=== PATIENT | male | born 1945 | race Caucasian/White ===

== ENCOUNTER → 2017-03-04 10:05 | Outpatient (CLI) | payer MEDICARE, OTHER ==
[2012-04-29 14:31] VITALS: BMI 25.3
== END | disposition home or self-care (01) ==
LOC: D.CT 10:05
DX: R11.2 Nausea with vomiting, unspecified (principal)

== ENCOUNTER → 2017-06-03 08:44 | Outpatient (CLI) | payer MEDICARE, OTHER ==
[2012-04-29 14:31] VITALS: BMI 25.3
== END | disposition home or self-care (01) ==
LOC: D.RAD 08:44
DX: R10.9 Unspecified abdominal pain (principal); R11.2 Nausea with vomiting, unspecified

== ENCOUNTER → 2017-06-11 09:12 | Outpatient (CLI) | payer MEDICARE, OTHER ==
[2012-04-29 14:31] VITALS: BMI 25.3
== END | disposition home or self-care (01) ==
LOC: D.NM 09:12
DX: R10.9 Unspecified abdominal pain (principal); R11.2 Nausea with vomiting, unspecified

== ENCOUNTER 2017-06-25 05:06 | Day surgery (SDC) | payer MEDICARE, OTHER ==
[~2017-06-25] VITALS: Ht 170.2 cm; Wt 77.1 kg
--- NOTE | ~2017-06-25 | OP ---
PATIENT NAME: VANDANA ALBARADO MEDICAL RECORD: [id number] :47 LOCATION:D.OPS ADMISSION DATE: SURGEON: KHNAH GUTIERREZ MD DATE OF OPERATION: 06/25/2017 PREOPERATIVE DIAGNOSES: 1. Biliary dyskinesia. 2. Tobacco dependence syndrome. 3. History of rectal cancer. POSTOPERATIVE DIAGNOSES: 1. Biliary dyskinesia. 2. Tobacco dependence syndrome. 3. History of rectal cancer. PROCEDURE: Laparoscopic cholecystectomy. SURGEON: Khanh Gutierrez MD REPORT OF PROCEDURE: The patient's abdomen was prepped and draped in sterile fashion. A cutdown was made on the superior aspect of the umbilicus, 0 Vicryls were placed in the fascia bilaterally, and the fascia was incised with 15-blade. I bluntly entered the peritoneal cavity and placed a 12-mm Weston port. Under direct visualization, a 5 mm trocar was placed in the epigastrium and 2 more 5-mm trocars were placed in the right subcostal region. The gallbladder was grasped and elevated. The cystic artery and cystic duct were dissected free and these were clipped proximally and distally and ligated in standard fashion. As we started taking the gallbladder off the liver bed, there was noted to be another branch of the artery, which was posterior to the gallbladder. This was clipped proximally and distally and ligated. The gallbladder was taken off the liver bed and placed into an Endo Catch bag. Any bleeding from the liver bed was then treated with electrocautery. At this point, the ports and insufflation were then removed and the gallbladder was taken out through the umbilicus. We then inspected the pelvis to look for any adhesions as the patient had a history of a hand-assisted laparoscopic low anterior resection. There were no signs of any adhesions present in the pelvis. I was able to see the small bowel was free and mobile. The tissues all seem to be intact with no signs of any masses or lesions. At this point, the ports and insufflation were then removed. The periumbilical fascia was closed with interrupted 0 Vicryls times 3. The wounds were irrigated out with normal saline and infused with 10 mL of 0.25% Marcaine with epinephrine. The skin incisions were all closed with subcutaneous 5-0 Monocryl and dressed appropriately. COMPLICATIONS: None. CONDITION: Stable. ANESTHESIA: General endotracheal and local. BLOOD LOSS: Minimal. TRANSINT:[id number] Voice Confirmation ID: [id number] DOCUMENT ID: [id number] OPERATIVE REPORT [id number] VANDANA ALBARADO CHRISTIAN MD at 1044 CC: CÉSAR MEZA MD [id number] DICTATION DATE: 06/25/17 0845 FERMENTING CELLARS RECEIVER: 06/25/17 1031 REG [place] [id number] [place] [id number]
[2017-06-25 05:33] LABS: BASOPHILS 0.2 % (0-2); EOSINOPHILS 2.8 % (0-7); HEMOGLOBIN 14.1 g/dL (13.5-17.5); IMMATURE GRANULOCYTES 0.3 % (0-5); LYMPHOCYTES 16.8 % (15-50); MCH 32.3 pg (26.0-34.0); MCHC 34.4 g/dL (31.0-37.0); MEAN PLATELET VOLUME 10.7 fL (7.4-10.4); MONOCYTES 8.5 % (2-11); NEUTROPHILS 71.4 % (40-80); PLATELET COUNT 140 10x3/uL (130-400); RBC 4.36 10x6/uL (4.20-6.10); RDW 13.3 % (11.5-14.5); WBC 6.3 10x3/uL (4.8-10.8)
[2017-06-25 05:49] LABS: APTT 32.8 SECONDS (22.8-39.4); INR 0.92 (0.85-1.17)
[2017-06-25 05:59] LABS: CALC OSMOLALITY 279 mosm/kg (275-300); CALCIUM 8.7 mg/dL (8.5-10.1); CARBON DIOXIDE 26.8 mmol/L (21.0-32.0); CHLORIDE - SERUM 104 mmol/L (98-107); GLUCOSE 88 mg/dL (74-106); POTASSIUM - SERUM 4.1 mmol/L (3.5-5.1); SODIUM 140 mmol/L (136-145); UREA NITROGEN 19 mg/dL (7-18); eGFR NON AFRICAN AMERICAN 78 mL/min (90-120)
[2017-06-25 06:14] VITALS: BP 140/68; Ht 170.2 cm; Wt 77.1 kg
[2017-06-25] MEDS ORDERED: HYDROCODONE-APA1 TAB PO (08:41)
== END 2017-06-25 10:30 | disposition home or self-care (01) ==
LOC: D.OPS 05:06
PROVIDERS: Anesthesiology; Surgery
DX: K82.8 Other specified diseases of gallbladder (principal); F17.200 Nicotine dependence, unspecified, uncomplicated; Z85.048 Personal history of other malignant neoplasm of rectum, rectosigmoid junction, and anus; J44.9 Chronic obstructive pulmonary disease, unspecified; Z01.812 Encounter for preprocedural laboratory examination

== ENCOUNTER → 2017-09-09 10:04 | Outpatient (CLI) | payer MEDICARE, OTHER ==
[2017-06-25 06:14] VITALS: BMI 26.7
[~2017-09-09 10:04] MED LIST: HYDROCODONE-APA1 TAB PO
[2017-09-09 11:05] LABS: BASOPHILS 0.1 % (0-2); EOSINOPHILS 0.7 % (0-7); HEMATOCRIT 43.4 % (42.0-54.0); HEMOGLOBIN 15.1 g/dL (13.5-17.5); IMMATURE GRANULOCYTES 0.2 % (0-5); LYMPHOCYTES 7.9 % (15-50); MCH 32.3 pg (26.0-34.0); MCHC 34.8 g/dL (31.0-37.0); MCV 92.9 fL (80.0-100.0); MEAN PLATELET VOLUME 11.3 fL (7.4-10.4); MONOCYTES 6.7 % (2-11); NEUTROPHILS 84.4 % (40-80); PLATELET COUNT 133 10x3/uL (130-400); RBC 4.67 10x6/uL (4.20-6.10); RDW 13.4 % (11.5-14.5); WBC 9.2 10x3/uL (4.8-10.8)
[2017-09-09 11:13] LABS: ALBUMIN 3.7 g/dL (3.4-5.0); ALKALINE PHOSPHATASE 96 U/L (46-116); ALT (SGPT) 23 U/L (10-68); AMYLASE - SERUM 54 U/L (25-115); CALC OSMOLALITY 278 mosm/kg (275-300); CALCIUM 9.6 mg/dL (8.5-10.1); CARBON DIOXIDE 28.2 mmol/L (21.0-32.0); CHLORIDE - SERUM 105 mmol/L (98-107); GLUCOSE 108 mg/dL (74-106); LIPASE 102 U/L (73-393); POTASSIUM - SERUM 4.7 mmol/L (3.5-5.1); PROTEIN - SERUM 7.4 g/dL (6.4-8.2); SODIUM 139 mmol/L (136-145); UREA NITROGEN 13 mg/dL (7-18); eGFR NON AFRICAN AMERICAN 78 mL/min (90-120)
== END | disposition home or self-care (01) ==
LOC: D.CT 10:04
PROVIDERS: Surgery
DX: R10.13 Epigastric pain (principal)

== ENCOUNTER → 2017-09-24 07:17 | Outpatient (CLI) | payer MEDICARE, OTHER ==
[2017-06-25 06:14] VITALS: BMI 26.7
== END | disposition home or self-care (01) ==
LOC: D.CT 07:17
DX: R10.9 Unspecified abdominal pain (principal)

== ENCOUNTER 2020-07-13 16:36 | Inpatient (IN) | payer MEDICARE ==
[~2020-07-13] VITALS: Ht 170.2 cm; Wt 74.8 kg
[2020-07-13 17:05] LABS: BASOPHILS 0.1 % (0-2); EOSINOPHILS 0.1 % (0-7); HEMOGLOBIN 15.6 g/dL (13.5-17.5); IMMATURE GRANULOCYTES 0.1 % (0-5); LYMPHOCYTE ABS# 0.57 10x3/uL (1.32-3.57); LYMPHOCYTES 6.7 % (15-50); MCH 32.2 pg (26.0-34.0); MCHC 34.7 g/dL (31.0-37.0); MEAN PLATELET VOLUME 10.6 fL (7.4-10.4); MONOCYTES 10.6 % (2-11); NEUTROPHIL ABS# 7.01 10x3/uL (1.78-5.38); NEUTROPHILS 82.4 % (40-80); RBC 4.84 10x6/uL (4.20-6.10); RDW 13.7 % (11.5-14.5); WBC 8.5 10x3/uL (4.8-10.8)
[2020-07-13 17:16] LABS: CALC OSMOLALITY 281 mosm/kg (275-300); CALCIUM 9.4 mg/dL (8.5-10.1); CARBON DIOXIDE 30.3 mmol/L (21.0-32.0); CHLORIDE - SERUM 102 mmol/L (98-107); GLUCOSE 116 mg/dL (74-106); PLATELET COUNT 161 10x3/uL (130-400); SODIUM 140 mmol/L (136-145); UREA NITROGEN 18 mg/dL (7-18); eGFR NON AFRICAN AMERICAN 78 mL/min (90-120)
[2020-07-13 17:24] LABS: ALBUMIN 3.7 g/dL (3.4-5.0); ALKALINE PHOSPHATASE 82 U/L (30-120); ALT (SGPT) 20 U/L (10-68); AMYLASE - SERUM 61 U/L (25-115); BILIRUBIN - TOTAL 0.67 mg/dL (0.2-1.3); LIPASE 95 U/L (73-393); PROTEIN - SERUM 7.3 g/dL (6.4-8.2)
[2020-07-13 17:32] LABS: TROPONIN-I < 0.017 ng/mL (0.000-0.060)
[2020-07-13 17:37] LABS: BILIRUBIN NEGATIVE (NEGATIVE); KETONE MODERATE mg/dL (NEGATIVE); NITRITE NEGATIVE (NEGATIVE); UROBILINOGEN NORMAL mg/dL (< 2)
[2020-07-13 19:29] VITALS: BP 118/84
--- NOTE | 2020-07-13 19:29 | NUR ---
PT REPORT CALLED TO KENYETTA FORBES, NGT HAD BEEN DROPPED, WAITING ON X-RAY PALCEMENT TO HOOK TO SUCTION AT THIS TIME, RN IS AWARE
[2020-07-13 20:16] VITALS: BP 163/87
--- NOTE | 2020-07-13 21:02 | NUR ---
PATIENT STATES HE CURRENTLY TAKES NO HOME MEDICATIONS.
[2020-07-13 23:02] VITALS: BP 163/87
[2020-07-13 23:17] LABS: APTT 31.1 SECONDS (22.8-39.4); INR 1.06 (0.85-1.17); PROTIME 12.7 SECONDS (11.6-15.0)
[2020-07-13 23:43] LABS: MAGNESIUM - SERUM 2.1 mg/dL (1.8-2.4)
[2020-07-14 00:38] VITALS: BP 165/88
--- NOTE | 2020-07-14 01:40 | NUR ---
NGT SET TO LOW INTERMITTENT SUCTION PER PROTOCOL. GREEN GASTIRC CONTENT DRAINING. REPORTS RELIEF WITH PAIN MEDICATION. PATIENT IS AWARE OF NPO STATUS. DENIES NEEDS AT THIS TIME, RESTING COMFORTABLE.
[2020-07-14 04:57] VITALS: BP 162/72
[2020-07-14 06:27] LABS: BASOPHILS 0.2 % (0-2); EOSINOPHILS 0.2 % (0-7); HEMATOCRIT 42.7 % (42.0-54.0); HEMOGLOBIN 14.6 g/dL (13.5-17.5); IMMATURE GRANULOCYTES 0.2 % (0-5); LYMPHOCYTE ABS# 0.76 10x3/uL (1.32-3.57); LYMPHOCYTES 13.6 % (15-50); MCH 31.7 pg (26.0-34.0); MCHC 34.2 g/dL (31.0-37.0); MCV 92.8 fL (80.0-100.0); MEAN PLATELET VOLUME 10.9 fL (7.4-10.4); MONOCYTES 14.4 % (2-11); NEUTROPHIL ABS# 3.98 10x3/uL (1.78-5.38); NEUTROPHILS 71.4 % (40-80); PLATELET COUNT 141 10x3/uL (130-400); RDW 13.7 % (11.5-14.5)
[2020-07-14 06:29] LABS: WBC 5.6 10x3/uL (4.8-10.8)
[2020-07-14 07:09] LABS: ALBUMIN 3.3 g/dL (3.4-5.0); ALKALINE PHOSPHATASE 73 U/L (30-120); ALT (SGPT) 17 U/L (10-68); BILIRUBIN - TOTAL 0.58 mg/dL (0.2-1.3); CALC OSMOLALITY 280 mosm/kg (275-300); CALCIUM 8.8 mg/dL (8.5-10.1); CARBON DIOXIDE 25.8 mmol/L (21.0-32.0); CHLORIDE - SERUM 104 mmol/L (98-107); CREATININE - SERUM 0.8 mg/dL (0.6-1.3); GLUCOSE 105 mg/dL (74-106); POTASSIUM - SERUM 3.8 mmol/L (3.5-5.1); PROTEIN - SERUM 6.3 g/dL (6.4-8.2); SODIUM 140 mmol/L (136-145); UREA NITROGEN 18 mg/dL (7-18); eGFR NON AFRICAN AMERICAN > 90 mL/min (90-120)
[2020-07-14 07:12] VITALS: BP 146/66
[2020-07-14 07:24] VITALS: Ht 170.2 cm; Wt 74.8 kg
[2020-07-14 11:55] VITALS: BP 137/60
[2020-07-14 15:37] VITALS: BP 158/64
[2020-07-14 20:02] VITALS: BP 46/63
--- NOTE | 2020-07-14 23:00 | NUR ---
NGT SET TO LIS. CONTINUES IV FLUIDS TO PIV TO RIGHT AC. REPORTS HAVING BM TODAY. NO C/O PAIN. DENIES OTHER NEEDS AT THIS TIME.
[2020-07-15 00:41] VITALS: BP 115/73
[2020-07-15 04:52] VITALS: BP 144/68
--- NOTE | 2020-07-15 06:17 | NUR ---
PATIENT HAD BM THIS MORNING. HAS BEEN PASSING GAS ALL NIGHT.
[2020-07-15 07:28] LABS: BASOPHILS 0.1 % (0-2); EOSINOPHILS 0.5 % (0-7); HEMOGLOBIN 13.9 g/dL (13.5-17.5); IMMATURE GRANULOCYTES 0.2 % (0-5); LYMPHOCYTE ABS# 0.91 10x3/uL (1.32-3.57); LYMPHOCYTES 10.7 % (15-50); MCHC 34.8 g/dL (31.0-37.0); MEAN PLATELET VOLUME 10.9 fL (7.4-10.4); MONOCYTES 8.1 % (2-11); NEUTROPHIL ABS# 6.85 10x3/uL (1.78-5.38); NEUTROPHILS 80.4 % (40-80); PLATELET COUNT 143 10x3/uL (130-400); RBC 4.35 10x6/uL (4.20-6.10); RDW 13.4 % (11.5-14.5)
[2020-07-15 07:30] LABS: WBC 8.5 10x3/uL (4.8-10.8)
[2020-07-15 07:47] LABS: ALBUMIN 3.2 g/dL (3.4-5.0); ALKALINE PHOSPHATASE 77 U/L (30-120); ALT (SGPT) 16 U/L (10-68); BILIRUBIN - TOTAL 0.68 mg/dL (0.2-1.3); CALC OSMOLALITY 278 mosm/kg (275-300); CALCIUM 8.1 mg/dL (8.5-10.1); CARBON DIOXIDE 25.8 mmol/L (21.0-32.0); CHLORIDE - SERUM 106 mmol/L (98-107); CREATININE - SERUM 0.8 mg/dL (0.6-1.3); GLUCOSE 88 mg/dL (74-106); POTASSIUM - SERUM 3.5 mmol/L (3.5-5.1); PROTEIN - SERUM 5.9 g/dL (6.4-8.2); SODIUM 140 mmol/L (136-145); UREA NITROGEN 16 mg/dL (7-18); eGFR NON AFRICAN AMERICAN > 90 mL/min (90-120)
--- NOTE | 2020-07-15 09:00 | NUR ---
IV RESITED TO LEFT FOREARM X2 STICKS ASEPTIC TECH,22 G.IV DCD FROM RIGHT AC WITH CATH TIP INTACT
[2020-07-15 09:33] VITALS: BP 136/69
[2020-07-15 12:23] VITALS: BP 133/66
--- NOTE | 2020-07-15 15:24 | NUR ---
IV DCD WITH CATH TIP INTACT. DISCHARGE INSTRUCTIONS,STATES UNDERSTANDING. PT GETTING DRESSED FOR TRANSPORT HOME.
--- NOTE | 2020-07-15 15:29 | NUR ---
LEFT UNIT VIA WHEELCHAIR FOR TRANSPORT HOME.
--- NOTE | 2020-07-15 16:47 | MORECARE ---
CASE MANAGEMENT DISCHARGE SUMMARY PATIENT: VANDANA ALBARADO UNIT: [id number] ADM DATE: 07/13/20 AGE: 74 : 46 SEX: M ROOM/BED: D.[facility] AUTHOR: AMADO TOUSSAINT PHYSICIAN: REFERRING PHYSICIAN: HUGO MELGAR MD DATE OF SERVICE: 07/15/20 Discharge Plan Patient Name: VANDANA ALBARADO Facility: [facility]:[place] : 1945 Planned Disposition: Home Anticipated Discharge Date: 07/15/20 Discharge Date: 07/15/2020 Expected LOS: 2 Initial Reviewer: [id number] Initial Review Date: 07/13/2020 Generated: 07/15/20 5:46 pm DCPIA - Discharge Planning Initial Assessment Updated by [email or web address]: Regino Shoemaker on 07/15/20 4:44 pm * Is the patient Alert and Oriented? Yes * How many steps to enter\exit or inside your home? 3/0 * PCP HÉCOTR * Pharmacy [facility] in [facility] * Preadmission Environment Home with Family * ADLs Independent * Equipment None * Other Equipment n/a * List name and contact numbers for known caregivers / representatives who currently or will assist patient after discharge: SAVAGE ALBARADO (spouse) [phone] * Verbal permission to speak to the caregivers and representatives has been obtained from the patient. Yes * Community resources currently utilized None * Please name any agencies selected above. n/a * Additional services required to return to the preadmission environment? No * Can the patient safely return to the preadmission environment? Yes * Has this patient been hospitalized within the prior 30 days at any hospital? No Coverage Notice Reviewer: [id number] - Regino Shoemaker Notice Issued Date-Time: 07/15/2020 15:20 Notice Type: IM Discharge Notice Notice Delivered To: Patient Relationship to Patient: Self Accounts Payable Associate Name: Delivery Method: HAND - Hand Delivered Cortney Days: Prior Verbal Notification: Recipient Understood Notice: Yes Recipient Signature: Yes Med Rec Note Co-signed by Attending: Coverage Notice Comment: DC IMM delivered, explained, signed by the patient, and placed in chart Patient Name: VANDANA ALBARADO Page [phone] at 1647 All edits/amendments must be made on the electronic document DICTATION DATE: 07/15/201646 SUPERVISOR PARK WORKERS: JACQUELINE 07/15/201646 RPT#: [id number] DC DATE:07/15/20 STATUS: DIS IN [facility] [address] [place] [address] END OF REPORT
--- NOTE | 2020-07-15 16:55 | MORECARE ---
CASE MANAGEMENT DISCHARGE SUMMARY PATIENT: VANDANA ALBARADO UNIT: [id number] ADM DATE: 07/13/20 AGE: 74 : 47 SEX: M ROOM/BED: D.2231 AUTHOR: NORBERT,DOC PHYSICIAN: REFERRING PHYSICIAN: HUGO MELGAR MD DATE OF SERVICE: 07/15/20 Discharge Plan Patient Name: VANDANA ALBARADO Facility: [facility]:[place] : 1945 Planned Disposition: Home Anticipated Discharge Date: 07/15/20 Discharge Date: 07/15/2020 Expected LOS: 2 Initial Reviewer: [email or web address] Initial Review Date: 07/13/2020 Generated: 07/15/20 5:54 pm Comments DCP- Discharge Planning Updated by [email or web address]: Regino Shoemaker on 07/15/20 2:[address] CM met with patient to complete DC plan and to evaluate needs. Patient lives at home independently with his spouse. At discharge, the patient plans to return home and feels this is a safe discharge. CM discussed availability of home health, rehab services, and medical equipment. Patient declined HHS, SNF, IPR, and DME. Patient voiced no other needs at this time and is satisfied with DC plan. Transportation provider at discharge will be with his spouse, Savage Albarado ([phone]). DC IMM delivered, explained, signed by the patient, and placed in chart. Signed form also left with the patient. CM will continue to follow and will assist as needed with dc plans/needs. DCPIA - Discharge Planning Initial Assessment Updated by [email or web address]: Regino Shoemaker on 07/15/20 4:44 pm * Is the patient Alert and Oriented? Yes * How many steps to enter\exit or inside your home? 3/0 * PCP HÉCTOR * Pharmacy [facility] in [facility] * Preadmission Environment Home with Family * ADLs Independent * Equipment None * Other Equipment n/a * List name and contact numbers for known caregivers / representatives who currently or will assist patient after discharge: SAVAGE ALBARADO (spouse) [phone] * Verbal permission to speak to the caregivers and representatives has been obtained from the patient. Yes * Community resources currently utilized None * Please name any agencies selected above. n/a * Additional services required to return to the preadmission environment? No * Can the patient safely return to the preadmission environment? Yes * Has this patient been hospitalized within the prior 30 days at any hospital? No Coverage Notice Reviewer: [email or web address] Jersey Shoemaker Notice Issued Date-Time: 07/15/2020 15:20 Notice Type: IM Discharge Notice Notice Delivered To: Patient Relationship to Patient: Self Director Utilization Management Name: Delivery Method: HAND - Hand Delivered Cortney Days: Prior Verbal Notification: Recipient Understood Notice: Yes Recipient Signature: Yes Med Rec Note Co-signed by Attending: Coverage Notice Comment: DC IMM delivered, explained, signed by the patient, and placed in chart Last DP export: 07/15/20 2:47 p Patient Name: VANDANA ALBARADO Page [phone] at 1655 All edits/amendments must be made on the electronic document DICTATION DATE: 07/15/201653 WASTE DISPOSAL LEAKAGE TESTER: JACQUELINE 07/15/201653 RPT#: [id number] DC DATE:07/15/20 STATUS: DIS IN [facility] [address] [place] [address] END OF REPORT
--- NOTE | 2020-07-16 08:30 | MORECARE ---
CASE MANAGEMENT DISCHARGE SUMMARY PATIENT: VANDANA ALBARADO UNIT: [id number] ADM DATE: 07/13/20 AGE: 74 : 47 SEX: M ROOM/BED: D.2231 AUTHOR: NORBERT,DOC PHYSICIAN: REFERRING PHYSICIAN: HUGO MELGAR MD DATE OF SERVICE: 07/16/20 Discharge Plan Patient Name: VANDANA ALBARADO Facility: [facility]:[place] : 1945 Planned Disposition: Home Anticipated Discharge Date: 07/15/20 Discharge Date: 07/15/2020 Expected LOS: 2 Initial Reviewer: [email or web address] Initial Review Date: 07/13/2020 Generated: 07/16/20 9:29 am Comments DCP- Discharge Planning Updated by [email or web address]: Regino Shoemaker on 07/15/20 2:[address] CM met with patient to complete DC plan and to evaluate needs. Patient lives at home independently with his spouse. At discharge, the patient plans to return home and feels this is a safe discharge. CM discussed availability of home health, rehab services, and medical equipment. Patient declined HHS, SNF, IPR, and DME. Patient voiced no other needs at this time and is satisfied with DC plan. Transportation provider at discharge will be with his spouse, Savage Albarado ([phone]). DC IMM delivered, explained, signed by the patient, and placed in chart. Signed form also left with the patient. CM will continue to follow and will assist as needed with dc plans/needs. DCPIA - Discharge Planning Initial Assessment Updated by [email or web address]: Regino Shoemaker on 07/15/20 4:44 pm * Is the patient Alert and Oriented? Yes * How many steps to enter\exit or inside your home? 3/0 * PCP HÉCTOR * Pharmacy [facility] in [facility] * Preadmission Environment Home with Family * ADLs Independent * Equipment None * Other Equipment n/a * List name and contact numbers for known caregivers / representatives who currently or will assist patient after discharge: SAVAGE ALBARADO (spouse) [phone] * Verbal permission to speak to the caregivers and representatives has been obtained from the patient. Yes * Community resources currently utilized None * Please name any agencies selected above. n/a * Additional services required to return to the preadmission environment? No * Can the patient safely return to the preadmission environment? Yes * Has this patient been hospitalized within the prior 30 days at any hospital? No Coverage Notice Reviewer: [id number] Jersey Shoemaker Notice Issued Date-Time: 07/15/2020 15:20 Notice Type: IM Discharge Notice Notice Delivered To: Patient Relationship to Patient: Self Dental Chair Assembler Name: Delivery Method: HAND - Hand Delivered Cortney Days: Prior Verbal Notification: Recipient Understood Notice: Yes Recipient Signature: Yes Med Rec Note Co-signed by Attending: Coverage Notice Comment: DC IMM delivered, explained, signed by the patient, and placed in chart Last DP export: 07/15/20 2:55 p Patient Name: VANDANA ALBARADO Page [phone] at 0830 All edits/amendments must be made on the electronic document DICTATION DATE: 07/16/20828 MANAGER OF REVENUE: JACQUELINE 07/16/20828 RPT#: [id number] DC DATE:07/15/20 STATUS: DIS IN [facility] [address] [place] [address] END OF REPORT
== END 2020-07-15 15:32 | disposition home or self-care (01) | DRG 390 ==
LOC: D.ER 16:36 → D.EDHOLD 18:37 → D.MS 18:46
PROVIDERS: Emergency Medicine; ADMIT Family Medicine Adult Medicine; ATTEND Family Medicine Adult Medicine
DX: K56.609 Unspecified intestinal obstruction, unspecified as to partial versus complete obstruction (principal); H91.93 Unspecified hearing loss, bilateral; I10 Essential (primary) hypertension; Z85.038 Personal history of other malignant neoplasm of large intestine

== ENCOUNTER 2020-09-11 17:38 | Inpatient (IN) | payer MEDICARE ==
[~2020-09-11] VITALS: Ht 170.2 cm; Wt 77.0 kg
[2020-09-11 18:10] LABS: BASOPHILS 0.1 % (0-2); EOSINOPHILS 0.1 % (0-7); HEMATOCRIT 43.9 % (42.0-54.0); HEMOGLOBIN 15.3 g/dL (13.5-17.5); IMMATURE GRANULOCYTES 0.2 % (0-5); LYMPHOCYTE ABS# 0.88 10x3/uL (1.32-3.57); LYMPHOCYTES 7.9 % (15-50); MCH 32.2 pg (26.0-34.0); MCHC 34.9 g/dL (31.0-37.0); MCV 92.4 fL (80.0-100.0); MEAN PLATELET VOLUME 11.1 fL (7.4-10.4); MONOCYTES 4.2 % (2-11); NEUTROPHIL ABS# 9.77 10x3/uL (1.78-5.38); NEUTROPHILS 87.5 % (40-80); PLATELET COUNT 161 10x3/uL (130-400); RBC 4.75 10x6/uL (4.20-6.10); RDW 13.6 % (11.5-14.5); WBC 11.2 10x3/uL (4.8-10.8)
[2020-09-11 18:33] LABS: BILIRUBIN NEGATIVE (NEGATIVE); KETONE NEGATIVE (NEGATIVE); NITRITE NEGATIVE (NEGATIVE); UROBILINOGEN NORMAL mg/dL (< 2)
[2020-09-11 18:35] LABS: CALC OSMOLALITY 281 mosm/kg (275-300); CARBON DIOXIDE 30.3 mmol/L (21.0-32.0); CHLORIDE - SERUM 101 mmol/L (98-107); CREATININE - SERUM 1.1 mg/dL (0.6-1.3); GLUCOSE 115 mg/dL (74-106); POTASSIUM - SERUM 4.3 mmol/L (3.5-5.1); SODIUM 138 mmol/L (136-145); UREA NITROGEN 26 mg/dL (7-18); eGFR NON AFRICAN AMERICAN 69 mL/min (90-120)
[2020-09-11 18:43] LABS: ALBUMIN 3.9 g/dL (3.4-5.0); ALKALINE PHOSPHATASE 82 U/L (30-120); ALT (SGPT) 22 U/L (10-68); AMYLASE - SERUM 53 U/L (25-115); BILIRUBIN - TOTAL 0.64 mg/dL (0.2-1.3); LIPASE 100 U/L (73-393); PROTEIN - SERUM 7.6 g/dL (6.4-8.2)
[2020-09-11 18:45] LABS: TROPONIN-I < 0.017 ng/mL (0.000-0.060)
[2020-09-11 19:03] VITALS: BP 159/74
[2020-09-11 20:00] VITALS: BP 137/73
[2020-09-11 20:40] VITALS: BP 146/72
[2020-09-11 21:00] VITALS: BP 146/75
--- NOTE | 2020-09-11 22:00 | NUR ---
PT ARRIVED TO FLOOR AOX4. ASSISTED PT TO CHANGE INTO GOWN. NGT TO LIS. IV RIGHT AC INFUSING NS @ 75. PT REQUESTED AND GIVEN MORPHINE FOR PAIN. DENIES NAUSEA AT THIS TIME. STATES HE HAS NOT HAD A BOWEL MOVEMENT SINCE YESTERDAY AND THIS IS WHAT IT FELT LIKE WHEN HE HAD A SBO LAST TIME. LEAVING BEDSIDE AT THIS TIME TO HOME. PT DENIES OTHER NEEDS. CL IN REACH
--- NOTE | 2020-09-11 22:29 | NUR ---
NGT TO L NARE TO LIS CLEAR GASTRIC CONTENTS
[2020-09-12] VITALS (7 sets, daily range): BP systolic 127–162; BP diastolic 63–79; Ht 170.2 cm; Wt 77.0 kg
--- NOTE | 2020-09-12 00:30 | NUR ---
PT CALLED ASKING FOR PAIN MEDICATION. STATES THAT MORPHINE DID NOT REALLY HELP. STILL ALMOST 2 HOURS FROM TIME PT CAN HAVE MORE MORPHINE. CALLED AND SPOKE WITH NEGRITO RAMIREZ APN. STATES TO CHANGE MORPHINE TO DILAUDID AND GIVE FIRST DOSE NOW. GAVE DILAUDID ORDERED. PT DENIES OTHER NEEDS. CL IN REACH
[2020-09-12 07:21] LABS: APTT 31.9 SECONDS (22.8-39.4); BASOPHILS 0.1 % (0-2); EOSINOPHILS 0.7 % (0-7); HEMATOCRIT 41.2 % (42.0-54.0); HEMOGLOBIN 13.9 g/dL (13.5-17.5); IMMATURE GRANULOCYTES 0.1 % (0-5); INR 1.05 (0.85-1.17); LYMPHOCYTE ABS# 0.95 10x3/uL (1.32-3.57); LYMPHOCYTES 12.9 % (15-50); MCH 31.4 pg (26.0-34.0); MCHC 33.7 g/dL (31.0-37.0); MCV 93.2 fL (80.0-100.0); MEAN PLATELET VOLUME 11.6 fL (7.4-10.4); MONOCYTES 9.9 % (2-11); NEUTROPHIL ABS# 5.62 10x3/uL (1.78-5.38); NEUTROPHILS 76.3 % (40-80); PLATELET COUNT 147 10x3/uL (130-400); PROTIME 12.7 SECONDS (11.6-15.0); RBC 4.42 10x6/uL (4.20-6.10); RDW 13.5 % (11.5-14.5)
[2020-09-12 07:32] LABS: WBC 7.4 10x3/uL (4.8-10.8)
[2020-09-12 07:52] LABS: ALBUMIN 3.2 g/dL (3.4-5.0); ALKALINE PHOSPHATASE 68 U/L (30-120); BILIRUBIN - TOTAL 0.58 mg/dL (0.2-1.3); CALC OSMOLALITY 282 mosm/kg (275-300); CALCIUM 8.8 mg/dL (8.5-10.1); CARBON DIOXIDE 26.6 mmol/L (21.0-32.0); CHLORIDE - SERUM 106 mmol/L (98-107); CREATININE - SERUM 0.9 mg/dL (0.6-1.3); GLUCOSE 87 mg/dL (74-106); MAGNESIUM - SERUM 2.3 mg/dL (1.8-2.4); PHOSPHOROUS 4.1 mg/dL (2.5-4.9); PROTEIN - SERUM 6.5 g/dL (6.4-8.2); SODIUM 141 mmol/L (136-145); UREA NITROGEN 21 mg/dL (7-18); eGFR NON AFRICAN AMERICAN 88 mL/min (90-120)
[2020-09-12 08:11] LABS: ALT (SGPT) 15 U/L (10-68)
--- NOTE | 2020-09-12 16:35 | NUR ---
I have reviewed this patient and I concur with the Shift Assessment completed by the Licensed Practical Nurse today this shift.
--- NOTE | 2020-09-13 00:40 | NUR ---
PT IS AWAKE AND ALERT. PT IS HAVING DISCOMFORT WITH NGT. PAIN MED GIVEN, WILL CONT WITH PLAN OF CARE
--- NOTE | 2020-09-13 03:54 | NUR ---
I have reviewed this patient and I concur with the Shift Assessment completed by the Licensed Practical Nurse today this shift.
[2020-09-13 04:00] VITALS: BP 152/69
[2020-09-13 05:18] LABS: BASOPHILS 0.3 % (0-2); EOSINOPHILS 1.1 % (0-7); HEMATOCRIT 38.2 % (42.0-54.0); HEMOGLOBIN 12.9 g/dL (13.5-17.5); IMMATURE GRANULOCYTES 0.1 % (0-5); LYMPHOCYTE ABS# 1.23 10x3/uL (1.32-3.57); LYMPHOCYTES 17.5 % (15-50); MCH 31.5 pg (26.0-34.0); MCHC 33.8 g/dL (31.0-37.0); MCV 93.2 fL (80.0-100.0); MEAN PLATELET VOLUME 11.2 fL (7.4-10.4); MONOCYTES 8.1 % (2-11); NEUTROPHIL ABS# 5.13 10x3/uL (1.78-5.38); NEUTROPHILS 72.9 % (40-80); PLATELET COUNT 136 10x3/uL (130-400); RDW 13.4 % (11.5-14.5)
[2020-09-13 05:36] LABS: ALKALINE PHOSPHATASE 68 U/L (30-120); ALT (SGPT) 17 U/L (10-68); BILIRUBIN - TOTAL 0.62 mg/dL (0.2-1.3); CALC OSMOLALITY 278 mosm/kg (275-300); CALCIUM 8.2 mg/dL (8.5-10.1); CARBON DIOXIDE 26.9 mmol/L (21.0-32.0); CHLORIDE - SERUM 106 mmol/L (98-107); CREATININE - SERUM 0.9 mg/dL (0.6-1.3); GLUCOSE 84 mg/dL (74-106); MAGNESIUM - SERUM 1.9 mg/dL (1.8-2.4); PHOSPHOROUS 3.2 mg/dL (2.5-4.9); POTASSIUM - SERUM 3.6 mmol/L (3.5-5.1); PROTEIN - SERUM 6.1 g/dL (6.4-8.2); SODIUM 140 mmol/L (136-145); eGFR NON AFRICAN AMERICAN 88 mL/min (90-120)
[2020-09-13 05:37] LABS: UREA NITROGEN 14 mg/dL (7-18)
--- NOTE | 2020-09-13 08:17 | NUR ---
PATIENT AWAKE AND ALERT, STATES NGT IS VERY UNCOMFORTABLE AND WOULD LIKE OUT JESUS. OFFERED PATIENT COFFEE HE STATED HE IS UNABLE TO EAT OR DRINK WITH TUBE IN. PATIENT STATES HE HAS PASSED GAS AND HAD A BM THIS MORNING AND LAST NIGHT. AWAITING SURGERYTO MAKE ROUNDS TO GET ORDER TO REMOVE NGT. CONTINUE WITH PLAN OF CARE
[2020-09-13 08:34] VITALS: BP 144/78
--- NOTE | 2020-09-13 09:23 | NUR ---
PATIENT KUB CAME BACK CLEAR, RECEIVED OK FROM DEAN DANIEL TO REMOVE NGT. WILL ADVANCE DIET TO FULL LIQUID. CONTINUE WITH PLAN OF CARE
--- NOTE | 2020-09-13 10:59 | NUR ---
I have reviewed this patient and I concur with the Shift Assessment completed by the Licensed Practical Nurse today this shift.
--- NOTE | 2020-09-13 12:29 | NUR ---
Nutrition follow-up: Visited with pt during meal rounds. Pts still receiving a clear liquid diet with NGT in place at time of RD visit. Pt has since had the NGT removed and diet advanced to full liquids due to resolved ileus per KUB labs reviewed Wt: 169# +BM Will provide food choices and offer nutritional supplements. RDN will follow-up on progress toward goals: 09/18/20
[2020-09-13 12:49] VITALS: BP 123/64
[2020-09-13] MEDS ORDERED: PROTONIX40 MG PO (13:50)
[2020-09-13] MEDS ORDERED: REGLAN10 MG PO (13:50)
[2020-09-13] MEDS ORDERED: ZOFRAN ODT4 MG/UDTAB PO (13:50)
[2020-09-13] MEDS ORDERED: MIRALAX17 GM PO (13:50)
--- NOTE | 2020-09-13 15:19 | NUR ---
ALL DISCHARGE INSTRUCTIONS COVERED WITH PT AND PT FAMILY MEMBER. PT DENIES ANY QUESTIONS/CONCERNS/NEEDS AT THIS TIME. PIV TO LEFT FA REMOVED WITH CATHETER TIP INTACT. DRESSING APPLIED. PT STATES THAT HE WOULD LIKE TO AMBULATE WITHOUT ASSISTANCE FROM ROOM AND REFUSES TO WAIT FOR HOSPITAL ASSISTANCE AND WHEELCHAIR ESCORT. ALL DISCHARGE PAPERS SIGNED BY PATIENT AND SIGNED DC PAPERS PLACED IN PT CHART. PT DENIES FURTHER NEEDS AND AMBULATES FROM ROOM WITHOUT DIFFICULTY AND REPORTS THAT HE DOES HAVE ALL PERSONAL BELONGINGS.
== END 2020-09-13 15:22 | disposition home or self-care (01) | DRG 390 ==
LOC: D.ER 17:38 → D.MS 20:41
PROVIDERS: Family Medicine; ADMIT Family Medicine; ATTEND Family Medicine
DX: K56.609 Unspecified intestinal obstruction, unspecified as to partial versus complete obstruction (principal); H90.3 Sensorineural hearing loss, bilateral; Z85.038 Personal history of other malignant neoplasm of large intestine

== ENCOUNTER → 2020-09-28 11:42 | Outpatient (CLI) | payer MEDICARE ==
[2020-09-12 14:39] VITALS: BMI 26.5
[~2020-09-28 11:42] MED LIST changes: +MIRALAX17 GM PO; +PROTONIX40 MG PO; +REGLAN10 MG PO; +ZOFRAN ODT4 MG/UDTAB PO
== END | disposition home or self-care (01) ==
LOC: D.RAD 11:42
PROVIDERS: ATTEND Nurse Practitioner
DX: R10.9 Unspecified abdominal pain (principal)